=== PATIENT | male | born 1970 | race Caucasian/White ===

== ENCOUNTER → 2016-08-06 | Outpatient (CLI) | payer OTHER ==
--- NOTE | 2016-08-07 08:14 | KCIC ---
PROCEDURE Coronary artery calcium score HISTORY Calcium screening. Family history of CAD in father. TECHNIQUE High resolution, computed tomography of the heart was performed with ECG gating and suspended respiration using the Siemens HeartView CT. No contrast material was administered. Post processing was performed on the 3-D computer workstation using diastolic phase images to measure the amount of coronary vascular calcium. Scoring was performed utilizing the Agatston Method. COMPARISON None. FINDINGS Thorax: No significant abnormality is identified in the lungs or mediastinum. Note that this CT exam is limited to the heart and adjacent structures. Coronary arteries: CALCIUM IS PRESENT. TOTAL AGATSTON CALCIUM SCORE = 12.7. Calcium is detected in the coronary circulation and confirms the presence of atherosclerotic plaque. Calcium score of LAD is 0. Circumflex 7.8, RCA 4.9. No significant calcium is identified within the left main coronary artery. The presence of coronary calcium confirms the presence of atherosclerotic plaque. The greater the amount of coronary calcium, the greater the likelihood of occlusive coronary artery disease. However, there is not a one-to-one relationship, and findings may not be site specific. The total amount of calcium correlates best with the total amount of atherosclerotic plaque, although the true "plaque burden" may be underestimated by calcium score. MILD coronary atherosclerosis is present. Individuals in this score range typically have mild to moderate luminal irregularity at coronary angiography. There is LOW RISK of cardiovascular event based on this test. IMPRESSION 1. Coronary atherosclerosis is present, mild amount. 2. Low risk of cardiovascular event. RECOMMENDATIONS 1. Further evaluation and prevention strategies should be based on global assessment of cardiovascular risk factors in addition to the results of this test. 2. Reduction of modifiable cardiovascular risk factors should be considered. Additional supporting information concerning the findings and recommendation contained within this report can be found in the consensus statements on coronary vascular calcium published by the [place] [employer] and [place] [employer] 5 Conference (Circulation 1996; 94: 5829-3347; J Am Dave Cardiol 2000; 36: 326-340 and Circulation 2000; 101: 111-116). Electronically signed by: Alin Barreto MD (Aug 07, 2016 08:13:01)
== END | disposition home or self-care (01) ==
LOC: KCIC CT 15:13
PROVIDERS: ATTEND Family Medicine
DX: I10 Essential (primary) hypertension (principal); I25.10 Atherosclerotic heart disease of native coronary artery without angina pectoris; Z82.49 Family history of ischemic heart disease and other diseases of the circulatory system
CPT/HCPCS: 75571

== ENCOUNTER → 2017-05-16 | Outpatient (CLI) | payer OTHER | END | disposition home or self-care (01) | LOC: KCIC 16:13 | DX: M47.892 Other spondylosis, cervical region (principal) | CPT/HCPCS: 72050 ==

== ENCOUNTER → 2018-01-31 | Outpatient (CLI) | payer OTHER ==
--- NOTE | 2018-01-31 17:35 | KCIC ---
EXAM: PA and lateral views of both hands DATE: 01/31/2018 12:00 AM INDICATION: Bilateral hand pains most prominent in the thumbs COMPARISON: No Prior FINDINGS: Joint spaces are grossly preserved bilaterally. However there are small osteophytes at the thumb CMC joints left greater than right. Scattered IP osteophytes are also seen most prominent at the bilateral middle finger DIP joints. No evidence for acute fracture or dislocation. IMPRESSION: 1. Degenerative changes most prominent at the thumb CMC joints and middle finger DIP joints bilaterally. 2. No evidence of acute fracture or dislocation. Electronically signed by: David Pollack MD (01/31/2018 5:31 PM) [id number]
== END | disposition home or self-care (01) ==
LOC: KCIC 15:45
PROVIDERS: ATTEND Nurse Practitioner Family
DX: M19.042 Primary osteoarthritis, left hand (principal); M19.041 Primary osteoarthritis, right hand; M18.0 Bilateral primary osteoarthritis of first carpometacarpal joints; M25.742 Osteophyte, left hand; M25.741 Osteophyte, right hand
CPT/HCPCS: 73120

== ENCOUNTER → 2018-03-17 | Outpatient (CLI) | payer OTHER ==
--- NOTE | 2018-03-17 14:39 | KCIC ---
EXAM: MRI RIGHT SHOULDER DATE: 03/17/2018 1:15 PM COMPARISON: None INDICATION: Chronic right shoulder pain progressing over the last 2 weeks TECHNIQUE: Multiplanar multisequence MR imaging of the right shoulder was performed without IV contrast. FINDINGS: Moderate AC joint degenerative changes are seen with small associated osteophytes and AC joint edema. Trace subacromial-subdeltoid bursal fluid likely bursitis. Mild increased signal within the infraspinatus and supraspinatus tendon-mild tendinosis. No definite full-thickness rotator cuff tear is identified. Normal muscle signal and bulk. No discrete labral tear is identified. No Hill-Sachs deformity. The extra-articular long head biceps tendon is seen within the bicipital groove. Intra-articular biceps tendon is intact. No evidence for fracture or AVN. No discrete full-thickness cartilage defect is identified. IMPRESSION: 1. Mild supraspinatus and infraspinatus tendinosis, most prominent at the mid fibers of the infraspinatus tendon at the greater tuberosity attachment. 2. No discrete rotator cuff tear is identified. 3. Trace subacromial-subdeltoid bursal edema likely bursitis. 4. Moderate AC joint edema, likely degenerative in nature. However low-grade AC separation may have similar appearance. Electronically signed by: David Pollack MD (03/17/2018 2:35 PM) [id number]
== END | disposition home or self-care (01) ==
LOC: KCIC MRI 12:59
PROVIDERS: ATTEND Nurse Practitioner Family
DX: M25.711 Osteophyte, right shoulder (principal); R60.0 Localized edema
CPT/HCPCS: 73221

== ENCOUNTER → 2019-01-20 | Outpatient (CLI) | payer OTHER ==
--- NOTE | 2019-01-20 16:51 | KCIC ---
EXAM: Neck sonogram. HISTORY: Left neck mass. TECHNIQUE: Sonographic imaging of the neck at the site of palpable concern was performed. COMPARISON: None. FINDINGS: There is a 9 x 8 x 5 mm nonvascular nodule within the subcutaneous soft tissues of the left neck at the site of palpable concern. IMPRESSION: 9 mm nodule within the subcutaneous soft tissues of the left neck at the site of palpable concern. This is isoechoic to adjacent fat and most suggestive of a lipoma. Continued clinical follow-up of palpable abnormalities is recommended. Repeat imaging can be performed if there is continuing concern. Electronically signed by: Berta Jacobson MD (01/20/2019 4:49 PM) [place] [id number]
== END | disposition home or self-care (01) ==
LOC: KCIC US 14:57
PROVIDERS: ATTEND Family Medicine
DX: R22.1 Localized swelling, mass and lump, neck (principal)
CPT/HCPCS: 76536

== ENCOUNTER → 2020-04-27 | Outpatient (CLI) | payer OTHER ==
--- NOTE | 2020-04-27 16:01 | RAD ---
EXAM: Neck sonogram. HISTORY: Palpable lump. TECHNIQUE: Sonographic imaging of the neck was performed. COMPARISON: 01/20/2019. FINDINGS: There is a stable circumscribed solid nodule isoechoic to fat within the left neck at the s ite of palpable concern measuring 1.3 x 1.1 x 0.6 cm. This previously measured 0.9 x 0.8 x 0.5 cm. Th is demonstrates no internal blood flow. IMPRESSION: Slight interval increase in the size of a 1.3 cm nonvascular nodule isoechoic to fat with in the left neck at the site of concern. The interval change in size may be due to a component of dif ferences in measurement and imaging technique. The minimal interval global climate change researcher a 13 month interval a nd sonographic features favor a benign lipoma. However, continued sonographic follow-up can be perfor med if there is clinical concern. Electronically signed by: Berta Jacobson MD (04/27/2020 3:59 PM) [id number]
== END ==
LOC: US 15:34
PROVIDERS: ATTEND Nurse Practitioner Gerontology
DX: R22.1 Localized swelling, mass and lump, neck (principal)
CPT/HCPCS: 76536